=== PATIENT | female | born 1970 | race Caucasian/White ===

== ENCOUNTER → 2021-06-07 | Outpatient (CLI) | payer OTHER ==
[~2021-06-07] MED LIST: BAYER CHEWABLE81 MG PO; HARD NAILS2500 MCG PO; NORCO 7.5-3251 EACH PO; TORADOL 10 MG T10 MG PO; VERAPAMIL ER180 MG PO
== END ==
LOC: WCC 13:00
DX: L59.9 Disorder of the skin and subcutaneous tissue related to radiation, unspecified (principal); L97.105 Non-pressure chronic ulcer of unspecified thigh with muscle involvement without evidence of necrosis; L97.818 Non-pressure chronic ulcer of other part of right lower leg with other specified severity; M79.604 Pain in right leg; Z74.09 Other reduced mobility
CPT/HCPCS: 87070; 87077; 87186; 87205

== ENCOUNTER → 2021-06-07 | Outpatient (CLI) | payer BC ==
[2021-06-07 16:43] LABS: HEMOGLOBIN 12.4 gm/dl (12.3-15.3); RED BLOOD COUNT 4.48 M/UL (4.00-5.10); WHITE BLOOD COUNT 8.8 K/UL (4.5-11.0)
[2021-06-07 16:55] LABS: BUN/CREATININE RATIO 11 (0-10)
[2021-06-09 08:14] LABS: SARS COV-2 IGG AB Positive (Negative)
== END ==
LOC: RAD 15:05
PROVIDERS: Nurse Practitioner Family
DX: L59.9 Disorder of the skin and subcutaneous tissue related to radiation, unspecified (principal)
CPT/HCPCS: 36415; 71046; 80053; 85025; 86769; 93005

== ENCOUNTER → 2021-06-14 | Outpatient (CLI) | payer BC | LOC: WCC 08:53 | DX: L59.8 Other specified disorders of the skin and subcutaneous tissue related to radiation (principal); L97.105 Non-pressure chronic ulcer of unspecified thigh with muscle involvement without evidence of necrosis; M79.604 Pain in right leg; Z74.09 Other reduced mobility; Z79.1 Long term (current) use of non-steroidal anti-inflammatories (NSAID); Z79.2 Long term (current) use of antibiotics; Z79.899 Other long term (current) drug therapy | CPT/HCPCS: 93005 ==

== ENCOUNTER → 2021-06-23 | Outpatient (CLI) | payer BC | LOC: WCC 11:57 | DX: L59.8 Other specified disorders of the skin and subcutaneous tissue related to radiation (principal); L97.105 Non-pressure chronic ulcer of unspecified thigh with muscle involvement without evidence of necrosis; M79.604 Pain in right leg; Z74.09 Other reduced mobility; Z79.2 Long term (current) use of antibiotics; Z79.899 Other long term (current) drug therapy | CPT/HCPCS: 87070; 87077; 87186; 87205 ==

== ENCOUNTER → 2021-06-27 | Outpatient (CLI) | payer BC ==
[~2021-06-27] VITALS: Ht 167.6 cm; Wt 77.1 kg
[~2021-06-27] MED LIST changes: +ALEVE220 MG PO; +BIOTIN PO; +HEPARIN FL 100 UNIT IV; +LEVOFLOXACIN500 MG PO; +LIDOCAINE 5% CREAM TOP; +MEROPENEM1 GM IV; +NEURONTIN100 MG PO; +SANTYL OINT 3030 GM TOP; +VITAMIN C500 M4 PO; +VITAMIN D3125 MCG PO; +ZINC50 M3 PO
[2021-06-27 10:08] LABS: HEMOGLOBIN 10.6 gm/dl (12.3-15.3); RED BLOOD COUNT 3.71 M/UL (4.00-5.10); WHITE BLOOD COUNT 6.8 K/UL (4.5-11.0)
[2021-06-27 10:28] LABS: BUN/CREATININE RATIO 27 (0-10)
== END ==
LOC: OPSV 08:06
PROVIDERS: Nurse Practitioner Family
DX: L97.105 Non-pressure chronic ulcer of unspecified thigh with muscle involvement without evidence of necrosis (principal); B96.5 Pseudomonas (aeruginosa) (mallei) (pseudomallei) as the cause of diseases classified elsewhere; L59.9 Disorder of the skin and subcutaneous tissue related to radiation, unspecified
CPT/HCPCS: 71045; 80053; 85025; 85652; 86140; 96365; C1751; J2185

== ENCOUNTER → 2021-07-04 | Day surgery (SDC) | payer BC ==
[~2021-07-04] VITALS: Ht 167.6 cm; Wt 79.4 kg
[~2021-07-04] MED LIST changes: +HYDROCODON-ACE1 EAC4 PO
== END | disposition home or self-care (01) ==
LOC: OR 06:12
DX: T81.49XA Infection following a procedure, other surgical site, initial encounter (principal); Z79.899 Other long term (current) drug therapy; Z20.822 Contact with and (suspected) exposure to COVID-19
CPT/HCPCS: 84703; J1100; J1642; J1885; J2001; J2250; J2370; J2405; J2704; J3010; J7030; J7120

== ENCOUNTER → 2021-07-06 | Outpatient (CLI) | payer BC | LOC: WCC 14:24 | DX: L59.8 Other specified disorders of the skin and subcutaneous tissue related to radiation (principal); L97.815 Non-pressure chronic ulcer of other part of right lower leg with muscle involvement without evidence of necrosis; Z74.09 Other reduced mobility; Z79.899 Other long term (current) drug therapy | CPT/HCPCS: 97605 ==

== ENCOUNTER → 2021-07-20 | Outpatient (CLI) | payer BC | LOC: WCC 13:32 | DX: L97.105 Non-pressure chronic ulcer of unspecified thigh with muscle involvement without evidence of necrosis (principal); L59.9 Disorder of the skin and subcutaneous tissue related to radiation, unspecified; M79.604 Pain in right leg; Z74.09 Other reduced mobility ==

== ENCOUNTER → 2021-07-28 | Outpatient (CLI) | payer BC | END | disposition home or self-care (01) | LOC: WCC 13:06 | DX: L59.9 Disorder of the skin and subcutaneous tissue related to radiation, unspecified (principal); L97.105 Non-pressure chronic ulcer of unspecified thigh with muscle involvement without evidence of necrosis; M79.604 Pain in right leg; Z74.09 Other reduced mobility | CPT/HCPCS: 87070; 87205 ==

== ENCOUNTER → 2021-08-03 | Outpatient (CLI) | payer BC | END | disposition home or self-care (01) | LOC: WCC 11:49 | DX: L59.9 Disorder of the skin and subcutaneous tissue related to radiation, unspecified (principal); L97.105 Non-pressure chronic ulcer of unspecified thigh with muscle involvement without evidence of necrosis; M79.604 Pain in right leg; Z74.09 Other reduced mobility ==

== ENCOUNTER → 2021-08-08 | Outpatient (CLI) | payer BC | LOC: WCC 11:36 | DX: L59.8 Other specified disorders of the skin and subcutaneous tissue related to radiation (principal); L97.823 Non-pressure chronic ulcer of other part of left lower leg with necrosis of muscle; L97.105 Non-pressure chronic ulcer of unspecified thigh with muscle involvement without evidence of necrosis; M71.21 Synovial cyst of popliteal space [Baker], right knee; M19.90 Unspecified osteoarthritis, unspecified site; Z74.09 Other reduced mobility; Y84.2 Radiological procedure and radiotherapy as the cause of abnormal reaction of the patient, or of later complication, without mention of misadventure at the time of the procedure ==

== ENCOUNTER → 2021-08-18 | Outpatient (CLI) | payer BC | LOC: WCC 09:07 | DX: L59.8 Other specified disorders of the skin and subcutaneous tissue related to radiation (principal); L97.105 Non-pressure chronic ulcer of unspecified thigh with muscle involvement without evidence of necrosis; M79.604 Pain in right leg; Z74.09 Other reduced mobility; Z79.899 Other long term (current) drug therapy ==

== ENCOUNTER → 2021-08-29 | Outpatient (CLI) | payer BC | LOC: WCC 07:33 | DX: L59.8 Other specified disorders of the skin and subcutaneous tissue related to radiation (principal); L97.105 Non-pressure chronic ulcer of unspecified thigh with muscle involvement without evidence of necrosis; Z74.09 Other reduced mobility; Z79.899 Other long term (current) drug therapy ==

== ENCOUNTER → 2021-09-08 | Outpatient (CLI) | payer BC | LOC: WCC 07:45 | DX: L59.8 Other specified disorders of the skin and subcutaneous tissue related to radiation (principal); L97.105 Non-pressure chronic ulcer of unspecified thigh with muscle involvement without evidence of necrosis; M79.604 Pain in right leg; Z74.09 Other reduced mobility ==

== ENCOUNTER → 2021-09-14 | Outpatient (CLI) | payer BC | END | disposition home or self-care (01) | LOC: WCC 07:48 | PROC: 0JBN0ZZ Excision of Right Lower Leg Subcutaneous Tissue and Fascia, Open Approach (ICD-10-PCS; principal; 2021-09-14) | DX: L59.8 Other specified disorders of the skin and subcutaneous tissue related to radiation (principal); L97.105 Non-pressure chronic ulcer of unspecified thigh with muscle involvement without evidence of necrosis; M19.90 Unspecified osteoarthritis, unspecified site; Z74.09 Other reduced mobility; Z92.3 Personal history of irradiation; Y84.2 Radiological procedure and radiotherapy as the cause of abnormal reaction of the patient, or of later complication, without mention of misadventure at the time of the procedure; Z79.891 Long term (current) use of opiate analgesic; Z79.899 Other long term (current) drug therapy; Z79.1 Long term (current) use of non-steroidal anti-inflammatories (NSAID); Y78.8 Miscellaneous radiological devices associated with adverse incidents, not elsewhere classified ==

== ENCOUNTER → 2021-09-21 | Outpatient (CLI) | payer BC | END | disposition home or self-care (01) | LOC: WCC 07:26 | PROC: 0JBN0ZZ Excision of Right Lower Leg Subcutaneous Tissue and Fascia, Open Approach (ICD-10-PCS; principal; 2021-09-21) | DX: L59.8 Other specified disorders of the skin and subcutaneous tissue related to radiation (principal); L97.105 Non-pressure chronic ulcer of unspecified thigh with muscle involvement without evidence of necrosis; M19.90 Unspecified osteoarthritis, unspecified site; I49.9 Cardiac arrhythmia, unspecified; Z74.09 Other reduced mobility; Z79.899 Other long term (current) drug therapy ==

== ENCOUNTER → 2021-09-28 | Outpatient (CLI) | payer BC | END | disposition home or self-care (01) | LOC: WCC 07:49 | DX: L59.8 Other specified disorders of the skin and subcutaneous tissue related to radiation (principal); L97.105 Non-pressure chronic ulcer of unspecified thigh with muscle involvement without evidence of necrosis; Z74.09 Other reduced mobility; Z79.1 Long term (current) use of non-steroidal anti-inflammatories (NSAID); Z79.899 Other long term (current) drug therapy ==

== ENCOUNTER → 2021-10-05 | Outpatient (CLI) | payer BC | LOC: WCC 08:03 | DX: L59.8 Other specified disorders of the skin and subcutaneous tissue related to radiation (principal); L97.105 Non-pressure chronic ulcer of unspecified thigh with muscle involvement without evidence of necrosis; M79.604 Pain in right leg; Z74.09 Other reduced mobility ==

== ENCOUNTER → 2021-10-12 | Outpatient (CLI) | payer BC | LOC: WCC 08:04 | DX: L59.8 Other specified disorders of the skin and subcutaneous tissue related to radiation (principal); L97.115 Non-pressure chronic ulcer of right thigh with muscle involvement without evidence of necrosis; Z74.09 Other reduced mobility; Z79.899 Other long term (current) drug therapy ==

== ENCOUNTER → 2021-10-19 | Outpatient (CLI) | payer BC | LOC: WCC 08:01 | DX: L59.8 Other specified disorders of the skin and subcutaneous tissue related to radiation (principal); L97.105 Non-pressure chronic ulcer of unspecified thigh with muscle involvement without evidence of necrosis; M79.604 Pain in right leg; M19.90 Unspecified osteoarthritis, unspecified site; Y84.2 Radiological procedure and radiotherapy as the cause of abnormal reaction of the patient, or of later complication, without mention of misadventure at the time of the procedure; Y92.9 Unspecified place or not applicable; Z74.09 Other reduced mobility ==

== ENCOUNTER → 2021-10-26 | Outpatient (CLI) | payer BC | END | disposition home or self-care (01) | LOC: WCC 07:32 | DX: L59.8 Other specified disorders of the skin and subcutaneous tissue related to radiation (principal); Y84.2 Radiological procedure and radiotherapy as the cause of abnormal reaction of the patient, or of later complication, without mention of misadventure at the time of the procedure; Z74.09 Other reduced mobility; M79.604 Pain in right leg; Z79.1 Long term (current) use of non-steroidal anti-inflammatories (NSAID); Z79.899 Other long term (current) drug therapy ==

== ENCOUNTER → 2021-11-03 | Outpatient (CLI) | payer BC | LOC: WCC 07:48 | DX: L59.8 Other specified disorders of the skin and subcutaneous tissue related to radiation (principal); L97.115 Non-pressure chronic ulcer of right thigh with muscle involvement without evidence of necrosis; M79.604 Pain in right leg; Z74.09 Other reduced mobility; Z79.899 Other long term (current) drug therapy ==

== ENCOUNTER → 2021-11-17 | Outpatient (CLI) | payer BC | LOC: WCC 07:12 | DX: L59.8 Other specified disorders of the skin and subcutaneous tissue related to radiation (principal); Y84.2 Radiological procedure and radiotherapy as the cause of abnormal reaction of the patient, or of later complication, without mention of misadventure at the time of the procedure; L97.105 Non-pressure chronic ulcer of unspecified thigh with muscle involvement without evidence of necrosis; M79.604 Pain in right leg; M19.90 Unspecified osteoarthritis, unspecified site; Z74.09 Other reduced mobility; Z92.3 Personal history of irradiation ==

== ENCOUNTER → 2021-11-24 | Outpatient (CLI) | payer BC | LOC: WCC 07:44 | DX: L59.8 Other specified disorders of the skin and subcutaneous tissue related to radiation (principal); L97.105 Non-pressure chronic ulcer of unspecified thigh with muscle involvement without evidence of necrosis; M79.604 Pain in right leg; M19.90 Unspecified osteoarthritis, unspecified site; Y84.2 Radiological procedure and radiotherapy as the cause of abnormal reaction of the patient, or of later complication, without mention of misadventure at the time of the procedure; Z74.09 Other reduced mobility ==

== ENCOUNTER → 2021-12-01 | Outpatient (CLI) | payer BC | END | disposition home or self-care (01) | LOC: WCC 07:46 | DX: L59.8 Other specified disorders of the skin and subcutaneous tissue related to radiation (principal); M79.604 Pain in right leg; B96.1 Klebsiella pneumoniae [K. pneumoniae] as the cause of diseases classified elsewhere; B95.2 Enterococcus as the cause of diseases classified elsewhere; B96.5 Pseudomonas (aeruginosa) (mallei) (pseudomallei) as the cause of diseases classified elsewhere; Z79.2 Long term (current) use of antibiotics; Z79.899 Other long term (current) drug therapy ==

== ENCOUNTER → 2021-12-15 | Outpatient (CLI) | payer BC | LOC: WCC 07:33 | DX: L59.8 Other specified disorders of the skin and subcutaneous tissue related to radiation (principal); L97.105 Non-pressure chronic ulcer of unspecified thigh with muscle involvement without evidence of necrosis; M79.604 Pain in right leg; Y84.2 Radiological procedure and radiotherapy as the cause of abnormal reaction of the patient, or of later complication, without mention of misadventure at the time of the procedure; Y81.8 Miscellaneous general- and plastic-surgery devices associated with adverse incidents, not elsewhere classified; M19.90 Unspecified osteoarthritis, unspecified site; Z74.09 Other reduced mobility; Z85.831 Personal history of malignant neoplasm of soft tissue; Z92.21 Personal history of antineoplastic chemotherapy; Z92.3 Personal history of irradiation ==

== ENCOUNTER → 2021-12-22 | Outpatient (CLI) | payer BC | END | disposition home or self-care (01) | LOC: WCC 08:29 | DX: L59.8 Other specified disorders of the skin and subcutaneous tissue related to radiation (principal); L97.105 Non-pressure chronic ulcer of unspecified thigh with muscle involvement without evidence of necrosis; M79.604 Pain in right leg; Z74.09 Other reduced mobility; Z79.899 Other long term (current) drug therapy ==

== ENCOUNTER → 2021-12-29 | Outpatient (CLI) | payer BC | END | disposition home or self-care (01) | LOC: WCC 08:06 | DX: L59.8 Other specified disorders of the skin and subcutaneous tissue related to radiation (principal); M79.604 Pain in right leg; B96.5 Pseudomonas (aeruginosa) (mallei) (pseudomallei) as the cause of diseases classified elsewhere; B96.1 Klebsiella pneumoniae [K. pneumoniae] as the cause of diseases classified elsewhere; Z79.2 Long term (current) use of antibiotics; Z79.899 Other long term (current) drug therapy; Z74.09 Other reduced mobility ==

== ENCOUNTER → 2022-01-12 | Outpatient (CLI) | payer BC | LOC: WCC 07:32 | DX: L59.8 Other specified disorders of the skin and subcutaneous tissue related to radiation (principal); L97.105 Non-pressure chronic ulcer of unspecified thigh with muscle involvement without evidence of necrosis; M79.604 Pain in right leg; Z74.09 Other reduced mobility ==

== ENCOUNTER → 2022-01-19 | Outpatient (CLI) | payer BC | END | disposition home or self-care (01) | LOC: WCC 06:52 | DX: L59.8 Other specified disorders of the skin and subcutaneous tissue related to radiation (principal); M79.604 Pain in right leg; Z79.899 Other long term (current) drug therapy; Z74.09 Other reduced mobility ==

== ENCOUNTER → 2022-01-26 | Outpatient (CLI) | payer BC | LOC: WCC 07:19 | DX: L59.8 Other specified disorders of the skin and subcutaneous tissue related to radiation (principal); L97.105 Non-pressure chronic ulcer of unspecified thigh with muscle involvement without evidence of necrosis; M79.604 Pain in right leg; Z74.09 Other reduced mobility; Y84.2 Radiological procedure and radiotherapy as the cause of abnormal reaction of the patient, or of later complication, without mention of misadventure at the time of the procedure ==

== ENCOUNTER → 2022-02-02 | Outpatient (CLI) | payer BC | LOC: WCC 07:36 | DX: L59.8 Other specified disorders of the skin and subcutaneous tissue related to radiation (principal); Y84.2 Radiological procedure and radiotherapy as the cause of abnormal reaction of the patient, or of later complication, without mention of misadventure at the time of the procedure; Y82.8 Other medical devices associated with adverse incidents; L97.105 Non-pressure chronic ulcer of unspecified thigh with muscle involvement without evidence of necrosis; M79.604 Pain in right leg; M19.90 Unspecified osteoarthritis, unspecified site; Z74.09 Other reduced mobility ==

== ENCOUNTER → 2022-02-09 | Outpatient (CLI) | payer BC | LOC: WCC 07:29 | DX: L59.8 Other specified disorders of the skin and subcutaneous tissue related to radiation (principal); Y84.2 Radiological procedure and radiotherapy as the cause of abnormal reaction of the patient, or of later complication, without mention of misadventure at the time of the procedure; L97.105 Non-pressure chronic ulcer of unspecified thigh with muscle involvement without evidence of necrosis; M79.604 Pain in right leg; M19.90 Unspecified osteoarthritis, unspecified site; Z74.09 Other reduced mobility; Z92.3 Personal history of irradiation ==

== ENCOUNTER → 2022-02-16 | Outpatient (CLI) | payer BC | LOC: WCC 07:02 | DX: L59.8 Other specified disorders of the skin and subcutaneous tissue related to radiation (principal); L97.105 Non-pressure chronic ulcer of unspecified thigh with muscle involvement without evidence of necrosis; M79.604 Pain in right leg; M19.90 Unspecified osteoarthritis, unspecified site; Y84.2 Radiological procedure and radiotherapy as the cause of abnormal reaction of the patient, or of later complication, without mention of misadventure at the time of the procedure; Z74.09 Other reduced mobility; Z92.3 Personal history of irradiation ==

== ENCOUNTER → 2022-02-23 | Outpatient (CLI) | payer BC | LOC: WCC 07:14 | DX: L59.8 Other specified disorders of the skin and subcutaneous tissue related to radiation (principal); L97.105 Non-pressure chronic ulcer of unspecified thigh with muscle involvement without evidence of necrosis; M79.604 Pain in right leg; Z74.09 Other reduced mobility; Z92.3 Personal history of irradiation; Y84.2 Radiological procedure and radiotherapy as the cause of abnormal reaction of the patient, or of later complication, without mention of misadventure at the time of the procedure ==

== ENCOUNTER → 2022-03-16 | Outpatient (CLI) | payer BC | LOC: WCC 07:19 | DX: L59.8 Other specified disorders of the skin and subcutaneous tissue related to radiation (principal); M19.90 Unspecified osteoarthritis, unspecified site; Y84.2 Radiological procedure and radiotherapy as the cause of abnormal reaction of the patient, or of later complication, without mention of misadventure at the time of the procedure; Z74.09 Other reduced mobility; Z92.3 Personal history of irradiation ==

== ENCOUNTER → 2022-03-23 | Outpatient (CLI) | payer BC | LOC: WCC 07:31 | DX: L59.8 Other specified disorders of the skin and subcutaneous tissue related to radiation (principal); Y84.2 Radiological procedure and radiotherapy as the cause of abnormal reaction of the patient, or of later complication, without mention of misadventure at the time of the procedure; Z74.09 Other reduced mobility; Z92.3 Personal history of irradiation ==

== ENCOUNTER → 2022-04-06 | Outpatient (CLI) | payer BC | LOC: WCC 07:17 | DX: L59.8 Other specified disorders of the skin and subcutaneous tissue related to radiation (principal); L97.105 Non-pressure chronic ulcer of unspecified thigh with muscle involvement without evidence of necrosis; M79.604 Pain in right leg; Z74.09 Other reduced mobility ==

== ENCOUNTER → 2022-04-13 | Outpatient (CLI) | payer BC | LOC: WCC 07:20 | PROC: 0JBN0ZZ Excision of Right Lower Leg Subcutaneous Tissue and Fascia, Open Approach (ICD-10-PCS; principal; 2022-04-13) | DX: L59.8 Other specified disorders of the skin and subcutaneous tissue related to radiation (principal) ==

== ENCOUNTER → 2022-04-27 | Outpatient (CLI) | payer BC | END | disposition home or self-care (01) | LOC: WCC 07:26 | DX: L59.9 Disorder of the skin and subcutaneous tissue related to radiation, unspecified (principal); M79.604 Pain in right leg; Z74.09 Other reduced mobility ==

== ENCOUNTER → 2022-05-11 | Outpatient (CLI) | payer BC | END | disposition home or self-care (01) | LOC: WCC 07:15 | DX: L59.8 Other specified disorders of the skin and subcutaneous tissue related to radiation (principal); M79.604 Pain in right leg; Z74.09 Other reduced mobility ==

== ENCOUNTER → 2022-05-23 | Outpatient (CLI) | payer BC | LOC: WCC 07:18 | DX: L59.8 Other specified disorders of the skin and subcutaneous tissue related to radiation (principal); L97.105 Non-pressure chronic ulcer of unspecified thigh with muscle involvement without evidence of necrosis; Y84.2 Radiological procedure and radiotherapy as the cause of abnormal reaction of the patient, or of later complication, without mention of misadventure at the time of the procedure; Z74.09 Other reduced mobility; Z92.3 Personal history of irradiation ==

== ENCOUNTER → 2022-06-08 | Outpatient (CLI) | payer BC | LOC: WCC 07:08 | DX: L59.8 Other specified disorders of the skin and subcutaneous tissue related to radiation (principal); Y84.2 Radiological procedure and radiotherapy as the cause of abnormal reaction of the patient, or of later complication, without mention of misadventure at the time of the procedure; Z74.09 Other reduced mobility ==

== ENCOUNTER → 2022-06-22 | Outpatient (CLI) | payer BC | LOC: WCC 07:13 | DX: L59.8 Other specified disorders of the skin and subcutaneous tissue related to radiation (principal); L97.105 Non-pressure chronic ulcer of unspecified thigh with muscle involvement without evidence of necrosis; M79.604 Pain in right leg; Z74.09 Other reduced mobility; Z79.899 Other long term (current) drug therapy ==